=== PATIENT | male | born 1960 ===

== ENCOUNTER 2025-02-21 09:11 | Day surgery (SDC) | payer OTHER ==
[~2025-02-21] VITALS: Ht 172.7 cm; Wt 85.7 kg
[2025-02-21] VITALS (22 sets, daily range): BP systolic 96–135; BP diastolic 69–91
[~2025-02-21 09:11] MED LIST: ATOR10 PO; Benzocaine Oral Spray 0.5ML UD ONE; CYCL10 PO; FLUVOXAMINE MAL25 M1 PO; GABA300 PO; Lactated Ringer's 1,000 ML IV SCH; METF500 PO
--- NOTE | 2025-02-21 10:01 | NUR ---
Ambulatory in Day Surgery Patient confirms NPO status and agrees with scheduled surgery. Pre-Op teaching done. Pt verbalizes understanding. History, Chart, Medications and Allergies reviewed before start of procedure.Patient States Post-Procedure ride home has been arranged.
[2025-02-21] MEDS ORDERED: TESTOSTERONE (10:15)
[2025-02-21] MEDS ORDERED: propofoL 40 ML IV ONE (10:37)
--- NOTE | 2025-02-21 10:41 | NUR ---
02/21/25 1041 Kirsten Payan CONFIRMED AND REVIEWED H&P, MEDCICATIONS, ALLERGIES, MEDICAL HISTORY, RESPIRATORY HISTORY, VITAL SIGNS, 3-LEAD EKG, CONSENTS, AND PHYSICIAN ORDERS. PATIENT CONFIRMS NPO STATUS AND AGREES WITH SCHEDULED PROCEDURE. MONITOR INTACT WITH CONTINUOUS PULSE OXIMETRY, CAPNOGRAPHY, 3-LEAD EKG, INTERMITTENT BP. SUPPLEMENTAL O2 TO BE TITRATED THROUGHOUT PROCEDURE TO MAINTAIN O2 SATURATION ABOVE 90%. PATIENT DETERMINED TO BE ASA APPROPRIATE FOR PROPOFOL SEDATION PRIOR TO START OF PROCEDURE BY DR. PIZANO
--- NOTE | 2025-02-21 11:44 | NUR ---
Discharge instructions reviewed with patient. Patient verbalizes understanding. Copy given to patient to take home. Patient States Post-Procedure ride home has been arranged. Discharged via wheelchair to private car for ride home.
== END 2025-02-21 23:00 | disposition home or self-care (01) ==
LOC: ORSCMMR 09:11 → ORD 10:00 → ORSCMMR 10:00
PROVIDERS: Internal Medicine Gastroenterology
PROC: 0DBN8ZX Excision of Sigmoid Colon, Via Natural or Artificial Opening Endoscopic, Diagnostic (ICD-10-PCS; principal; 2025-02-21 10:00)
PROC: 0DB98ZX Excision of Duodenum, Via Natural or Artificial Opening Endoscopic, Diagnostic (ICD-10-PCS; principal; 2025-02-21 10:00)
PROC: 0DB48ZX Excision of Esophagogastric Junction, Via Natural or Artificial Opening Endoscopic, Diagnostic (ICD-10-PCS; principal; 2025-02-21 10:00)
PROC: 0DB78ZX Excision of Stomach, Pylorus, Via Natural or Artificial Opening Endoscopic, Diagnostic (ICD-10-PCS; principal; 2025-02-21 10:00)
DX: K62.5 Hemorrhage of anus and rectum (principal); R10.13 Epigastric pain; K21.9 Gastro-esophageal reflux disease without esophagitis; K63.5 Polyp of colon; K29.70 Gastritis, unspecified, without bleeding; E11.9 Type 2 diabetes mellitus without complications; E78.00 Pure hypercholesterolemia, unspecified; Z79.899 Other long term (current) drug therapy; Z79.84 Long term (current) use of oral hypoglycemic drugs; F99 Mental disorder, not otherwise specified
CPT/HCPCS: 82947; 88305; 88342; A9270; J2704; J7120